=== PATIENT | female | born 1970 | race Asian ===

== ENCOUNTER 2017-10-06 11:48 | Emergency (ER) | payer OTHER ==
[~2017-10-06] VITALS: Ht 165.1 cm; Wt 109.5 kg
[2017-10-06 11:50] VITALS: BP 126/81
[2017-10-06] MEDS ORDERED: SODIUM CHLORIDE FLUSH 10ML SYR IVF ONE (12:30)
[2017-10-06] MEDS ORDERED: SODIUM CHLORIDE 0.9% 1,000ML IVBOLUS ONE (12:30)
[2017-10-06] MEDS ORDERED: PROCHLORPERAZINE 5 MG/ML, 2ML IVPush ONE (12:30)
[2017-10-06] MEDS ORDERED: DIPHENHYDRAMINE 50 MG/ML, 1ML IVPush ONE (12:30)
[2017-10-06] MEDS ORDERED: KETOROLAC 30 MG/1 ML IVPush ONE (12:30)
[2017-10-06] MEDS ORDERED: PROCHLORPERAZINE 5 MG/ML, 2ML ONE (12:49)
[2017-10-06] MEDS ORDERED: DIPHENHYDRAMINE 50 MG/ML, 1ML ONE (12:50)
[2017-10-06] MEDS ORDERED: KETOROLAC 30 MG/1 ML ONE (12:50)
== END 2017-10-06 14:29 | disposition home or self-care (01) ==
LOC: ED 12:27
DX: G44.52 New daily persistent headache (NDPH) (principal); G43.909 Migraine, unspecified, not intractable, without status migrainosus; K21.9 Gastro-esophageal reflux disease without esophagitis; I10 Essential (primary) hypertension
CPT/HCPCS: 70450; 96361; 96374; 96375; 99284; J0780; J1200; J1885; J7030

== ENCOUNTER 2020-11-20 15:22 | Inpatient (IN) | payer OTHER ==
[~2020-11-20] VITALS: Ht 162.6 cm; Wt 117.9 kg
[~2020-11-20 15:22] MED LIST: ESOM40CA48 PO; HYDR25TA6 PO; LISI40TA PO; METO-264 PO
[2020-11-20] MEDS ORDERED: MORPHINE SULFATE 4 MG/ML, 1ML ONE (15:58)
[2020-11-20] MEDS ORDERED: ONDANSETRON 2MG/ML, 2ML ONE ×2 (15:58→16:51)
[2020-11-20] MEDS ORDERED: MORPHINE SULFATE 4 MG/ML, 1ML IVPush PRN (16:00)
[2020-11-20] MEDS ORDERED: ONDANSETRON 2MG/ML, 2ML IVPush ONE ×2 (16:00→20:00)
[2020-11-20] MEDS ORDERED: SODIUM CHLORIDE FLUSH 10ML SYR IVF ONE (16:00)
[2020-11-20] MEDS ORDERED: BAMLANIVIMAB 700 MG in SODIUM CHLORIDE 0.9% 250 ML IVPB ONE (16:30)
[2020-11-20] MEDS ORDERED: FILTER 0.22 MICRON IV ONE (16:30)
[2020-11-20 16:31] LABS: BASOPHILS % (AUTO) 0 % (0-1); EOSINOPHILS % (AUTO) 1 % (1-7); LYMPHOCYTES % (AUTO) 25 % (22-44); MEAN CORPUSCULAR HEMOGLOBIN 28.8 pg (27.0-34.8); MEAN CORPUSCULAR HGB CONC 33.9 g/dL (32.4-35.8); MEAN PLATELET VOLUME 8.9 fL (7.4-10.4); MONOCYTES % (AUTO) 6 % (2-9); NEUTROPHILS % (AUTO) 68 % (42-75); PLATELET COUNT 205 x10^3/uL (130-400); RED BLOOD COUNT 4.72 x10^6/uL (3.82-5.3); RED CELL DISTRIBUTION WIDTH 15.1 % (9.6-15.2)
[2020-11-20 16:37] LABS: ALANINE AMINOTRANSFERASE 68 U/L (12-78); ALBUMIN 3.6 g/dL (3.4-5.0); ANION GAP 9 mmol/L (5-15); CALCIUM 8.8 mg/dL (8.5-10.1); CHLORIDE 102 mmol/L (98-107); CREATININE 1.06 mg/dL (0.55-1.02)
[2020-11-20 16:39] LABS: ALKALINE PHOSPHATASE 105 U/L (45-117); BILIRUBIN,TOTAL 0.4 mg/dL (0.2-1.0); TOTAL PROTEIN 7.8 g/dL (6.4-8.2)
--- NOTE | 2020-11-20 16:40 | NUR ---
FOLLOWING MORPHINE INJECTION, PT BECAME DIAPHORETIC AND FAINT, NAUSEA WITH DRY HEAVE. PT STATED "I'M FEELING TERRIBLE" BUT UNABLE TO VERBALIZE OTHER SYMPTOMS. PT LAID SUPINE, HEART MONITOR IN PLACE SHOWING NSR. VSS AND UPDATED IN COMPUTER. ICE PACK OFFERED/PROVIDED. PT STATES FEELING BETTER FOLLOWING 10 MINUTES OF LYING SUPINE WITH THIS RN MONITORING CLOSELY. ERP NOTIFIED OF RESPONSE AND LAB RESULTS. CALL LIGHT WITHIN REACH.
[2020-11-20 16:42] LABS: MD NO
--- NOTE | 2020-11-20 16:50 | NUR ---
VS PRIOR TO BAMLANIVIMAB INFUSION DEMONSTRATED HYPOTENSION. VSS UPDATED IN COMPUTER. INFUSION STOPPED, BP RECHECKED THREE LOCATIONS REMAINS 80S/50S. ERP NOTIFIED. PT STILL WITH N/V. REPEAT ZOFRAN GIVEN. ERP TO RECHECK.
[2020-11-20] MEDS ORDERED: NS + 40MEQ KCL 1,000 ML IV ONE ×2 (16:58→17:27)
[2020-11-20] MEDS ORDERED: POTASSIUM CHLORIDE 20 MEQ TAB.ER.PRT PO ONE (17:00)
--- NOTE | 2020-11-20 17:16 | NUR ---
2ND IV PLACED FOR POTASSIUM INFUSION. ANTIBODY INFUSION RESTARTED PER ERP ORDER. NS BOLUS INFUSING. CONTINUE CLOSE MONITORING FOR HYPOTENSION. CALL LIGHT WITHIN REACH.
--- NOTE | 2020-11-20 17:18 | NUR ---
PT STATES BODY ACHE PAIN PREVIOUSLY RATED 5/10 NOW GONE. STILL RATES GENERAL DISCOMFORT AT 3/10 D/T NAUSEA.
[2020-11-20] MEDS ORDERED: PROMETHAZINE 25 MG/ML, 1ML ONE (17:38)
[2020-11-20] MEDS ORDERED: PROMETHAZINE 25 MG/ML, 1ML IM ONE (18:00)
[2020-11-20] MEDS ORDERED: MAGNESIUM SULFATE PMX 2GM/50ML 50 ML IV ONE (18:00)
--- NOTE | 2020-11-20 18:20 | NUR ---
VSS. ANTIBODY INFUSION COMPLETED, NO REACTION. NS BOLUS 1 LITER COMPLETED. PT STATES NAUSEA GONE, RATES GENERALIZED DISCOMFORT AT 1/10. CALL LIGHT WITHIN REACH.
[2020-11-20] MEDS ORDERED: HYDR25TA6 PO (18:24)
[2020-11-20] MEDS ORDERED: MAGNESIUM SULFATE PMX 2GM/50ML 50 ML ONE (18:26)
[2020-11-20] MEDS ORDERED: MAGNESIUM SULFATE 1 GM in DEXTROSE 5% 100 ML IV ONE (18:30)
[2020-11-20] MEDS ORDERED: MAGNESIUM SULFATE/D5W 100 ML IVPB ONE (18:30)
[2020-11-20] MEDS ORDERED: POTASSIUM CHLORIDE 20 MEQ PACKET ONE (18:41)
--- NOTE | 2020-11-20 18:45 | NUR ---
PT UNABLE TO TAKE POTASSIUM PILLS ORDERED. VERIFIED OK WITH DR COTTER TO GIVE KLORCON POWDER INSTEAD. CALL LIGHT WITHIN REACH.
--- NOTE | 2020-11-20 19:09 | NUR ---
REPORT TO HERNESTO, TRANSFER OF CARE AT THIS TIME.
--- NOTE | 2020-11-20 19:27 | NUR ---
RECEIVED PT REPORT. pt calm and cooperative, on cr monitor, bilateral AC iv's intact, no swelling, no redness and flowing well on iv pumps both of them. Pt without complaints at this time, says that nausea has subsided too. to call report to floor and move pt up as soon as possible.
--- NOTE | 2020-11-20 19:36 | NUR ---
report called to floor RN without incident. pt to be moved.
--- NOTE | 2020-11-20 19:53 | NUR ---
PT TAKEN to floor on cr monitor, and kristian. tolerated well, and in hospital bed, side rails up x2, and care to floor RN.
[2020-11-20] MEDS ORDERED: SODIUM CHLORIDE 0.9% 1,000ML IVBOLUS ONE (20:00)
[2020-11-20] MEDS ORDERED: LABETALOL 5MG/ML, 20ML IVPush PRN (20:30)
[2020-11-20] MEDS ORDERED: PHARMACY MAY ADJ FOR RENAL FX MC PRN (20:30)
[2020-11-20] MEDS ORDERED: hydrALAzine 20 MG/ML, 1ML IVPush PRN (20:30)
[2020-11-20] MEDS: ASCORBIC ACID 500 MG TABLET PO SCH (21:04)
[2020-11-20] MEDS: ACETAMINOPHEN 325 MG TABLET PO PRN (21:04)
[2020-11-20] MEDS: MELATONIN 5 MG TABLET PO SCH (21:04)
[2020-11-20] MEDS: ENOXAPARIN 30 MG/0.3 ML SQ SCH (21:04)
[2020-11-20 21:49] LABS: C-REACTIVE PROTEIN, QUANT 1.4 mg/dL (0.02-0.49)
[2020-11-20 23:15] VITALS: BP 93/61
[2020-11-21 00:48] VITALS: BP 78/57
[2020-11-21] MEDS: PROMETHAZINE 25 MG/ML, 1ML IM PRN ×3 (05:45→22:17)
[2020-11-21] MEDS: ACETAMINOPHEN 325 MG TABLET PO PRN ×2 (05:45→15:01)
[2020-11-21 05:47] VITALS: BP 107/67
[2020-11-21 06:00] LABS: CHLORIDE 106 mmol/L (98-107)
[2020-11-21 06:04] LABS: ANION GAP 7 mmol/L (5-15); CREATININE 0.81 mg/dL (0.55-1.02)
[2020-11-21] MEDS ORDERED: POTASSIUM CHLORIDE 20 MEQ TAB.ER.PRT PO ONE (08:00)
[2020-11-21 08:17] VITALS: BP 108/69
[2020-11-21] MEDS: ASCORBIC ACID 500 MG TABLET PO SCH ×2 (08:43→18:00)
[2020-11-21] MEDS: ENOXAPARIN 30 MG/0.3 ML SQ SCH (08:43)
[2020-11-21] MEDS: ZINC SULFATE 220 MG CAPSULE PO SCH (08:44)
[2020-11-21] MEDS: CHOLECALCIFEROL 5,000u TAB PO SCH (08:44)
[2020-11-21] MEDS: THIAMINE 100MG TABLET PO SCH (08:44)
[2020-11-21] MEDS ORDERED: FAMOTIDINE 20 MG/2 ML IVPush ONE (10:30)
[2020-11-21] MEDS: KETOROLAC 30 MG/1 ML IM SCH ×3 (11:21→22:17)
[2020-11-21 14:07] VITALS: BP 91/57
[2020-11-21] MEDS: SODIUM CHLORIDE 0.9% 1,000 ML IV SCH (14:30)
[2020-11-21 18:57] VITALS: BP 107/71
[2020-11-21] MEDS: MELATONIN 5 MG TABLET PO SCH (22:17)
[2020-11-22 00:25] VITALS: BP 89/62
[2020-11-22] MEDS: SODIUM CHLORIDE 0.9% 1,000 ML IV SCH (02:30)
[2020-11-22] MEDS: PROMETHAZINE 25 MG/ML, 1ML IM PRN (04:59)
[2020-11-22] MEDS: KETOROLAC 30 MG/1 ML IM SCH (05:00)
[2020-11-22 07:23] VITALS: BP 116/78
[2020-11-22] MEDS ORDERED: ENOXAPARIN 40 MG/0.4 ML ONE (07:42)
[2020-11-22] MEDS: ZINC SULFATE 220 MG CAPSULE PO SCH (07:51)
[2020-11-22] MEDS: CHOLECALCIFEROL 5,000u TAB PO SCH (07:51)
[2020-11-22] MEDS: ASCORBIC ACID 500 MG TABLET PO SCH (07:51)
[2020-11-22] MEDS: THIAMINE 100MG TABLET PO SCH (07:51)
[2020-11-22] MEDS ORDERED: ENOXAPARIN 40 MG/0.4 ML SQ SCH (08:30)
[2020-11-22] MEDS ORDERED: KETOROLAC 30 MG/1 ML IV SCH (10:30)
[2020-11-22] MEDS ORDERED: CHOL500045 PO (12:12)
[2020-11-22] MEDS ORDERED: ASCO1500 PO (12:12)
[2020-11-22] MEDS ORDERED: ZINC220C7 PO (12:12)
[2020-11-22] MEDS ORDERED: PROM12.57 PO (12:58)
== END 2020-11-22 14:16 | disposition home or self-care (01) | DRG 177 ==
LOC: ED 18:05 → EDIP 18:14 → ED 18:17 → 4EST 19:51
PROVIDERS: ADMIT Family Medicine; ATTEND Hospitalist
DX: U07.1 COVID-19 (principal); J12.89 Other viral pneumonia; Z68.41 Body mass index [BMI] 40.0-44.9, adult; E87.1 Hypo-osmolality and hyponatremia; E16.2 Hypoglycemia, unspecified; E66.9 Obesity, unspecified; E83.42 Hypomagnesemia; E86.0 Dehydration; E86.1 Hypovolemia; E87.6 Hypokalemia; G47.33 Obstructive sleep apnea (adult) (pediatric); I10 Essential (primary) hypertension; K21.9 Gastro-esophageal reflux disease without esophagitis; Z79.899 Other long term (current) drug therapy; Z83.3 Family history of diabetes mellitus; I95.9 Hypotension, unspecified
CPT/HCPCS: 36415; 71045; 80048; 80053; 82803; 83036; 83605; 83615; 83735; 84100; 85025; 85379; 86140; 87040; 93005; 99285; G0378; J1650; J1885; J2405; J2550; J2270; J3475; J3480; J7030; J7050; Q0239

== ENCOUNTER → 2020-12-03 | Outpatient (CLI) | payer OTHER ==
[~2020-12-03] MED LIST changes: +ASCO1500 PO; +CHOL500045 PO; +OMNIPAQUE 350 MG/ML, 100ML BOTTLE ONE; +PROM12.57 PO; +ZINC220C7 PO
== END | disposition home or self-care (01) ==
LOC: RAD 16:00
PROVIDERS: ATTEND Nurse Practitioner Family
DX: J18.1 Lobar pneumonia, unspecified organism (principal); K76.0 Fatty (change of) liver, not elsewhere classified; R06.00 Dyspnea, unspecified; R09.02 Hypoxemia; R53.83 Other fatigue; I10 Essential (primary) hypertension; B94.8 Sequelae of other specified infectious and parasitic diseases
CPT/HCPCS: 71275; Q9967

== ENCOUNTER 2021-03-02 14:55 | Outpatient (CLI) | payer OTHER ==
[~2021-03-02 14:55] MED LIST changes: -LISI40TA PO; +LISI40TA9 PO; -OMNIPAQUE 350 MG/ML, 100ML BOTTLE ONE
== END 2021-03-02 23:59 | disposition home or self-care (01) ==
LOC: CFH 14:55
PROVIDERS: ATTEND Internal Medicine
DX: R91.1 Solitary pulmonary nodule (principal); M51.34 Other intervertebral disc degeneration, thoracic region; M51.44 Schmorl's nodes, thoracic region; I25.10 Atherosclerotic heart disease of native coronary artery without angina pectoris; K44.9 Diaphragmatic hernia without obstruction or gangrene
CPT/HCPCS: 71250